=== PATIENT | male | born 1955 | race Caucasian/White ===

== ENCOUNTER → 2016-12-10 | Outpatient (CLI) | payer MEDICARE | LOC: LAB 08:46 | DX: Z01.812 Encounter for preprocedural laboratory examination (principal); R20.0 Anesthesia of skin | CPT/HCPCS: Q9967 ==

== ENCOUNTER → 2017-04-18 | Outpatient (CLI) | payer MEDICARE | LOC: RAD 04-17 13:00 | DX: R68.89 Other general symptoms and signs (principal) ==

== ENCOUNTER 2017-11-09 16:19 | Emergency (ER) | payer MEDICARE ==
[~2017-11-09] VITALS: Ht 188 cm; Wt 81.8 kg
[2017-11-09] MEDS ORDERED: AMITRIPTYLINE H25 M2 PO (16:23)
[2017-11-09] MEDS ORDERED: NEURONTIN300 MG/CAP (16:23)
[2017-11-09] MEDS ORDERED: ACETAMINOPHEN-O1 TAB PO (16:23)
[2017-11-09 17:17] LABS: HEMATOCRIT 41.2 % (42.0-52.0); HEMOGLOBIN 13.4 g/dL (13.5-18.0); MEAN CELL VOLUME 97 fl (78-100); MEAN CORPUSCULAR HEMOGLOBIN 31 pg (27-31); MEAN CORPUSCULAR HGB CONC 33 g/dL (33-37); MEAN PLATELET VOLUME 9.6 fl (7.4-10.4); PLATELET COUNT 243 K/mm3 (130-400); RED BLOOD COUNT 4.27 M/mm3 (4.20-5.60); RED CELL DISTRIBUTION WIDTH 12.8 % (11.5-14.5); WHITE BLOOD COUNT 10.3 K/mm3 (4.8-10.8)
[2017-11-09 17:26] LABS: ALBUMIN 3.6 g/dL (3.5-5.0); BUN/CREATININE RATIO 17.2 (6.0-26.0); CALCIUM 8.4 mg/dL (8.4-10.2); POTASSIUM 3.4 mmol/L (3.6-5.0); TOTAL BILIRUBIN 0.6 mg/dL (0.2-1.3); TOTAL PROTEIN 5.9 g/dL (6.3-8.2)
[2017-11-09 17:30] LABS: MONOCYTE 7 % (3-10); NEUTROPHILS 85 % (42-75)
[2017-11-09 17:31] LABS: LYMPHOCYTE 8 % (20-51)
[2017-11-09 18:29] LABS: URINE APPEARANCE CLEAR; URINE BILIRUBIN NEGATIVE (NEGATIVE); URINE BLOOD NEGATIVE (NEGATIVE); URINE COLOR YELLOW; URINE GLUCOSE NEGATIVE (NEGATIVE); URINE KETONE NEGATIVE (NEGATIVE); URINE LEUKOCYTE ESTERASE NEGATIVE (NEGATIVE); URINE NITRATE NEGATIVE (NEGATIVE); URINE PROTEIN(semi-quant) NEGATIVE (NEGATIVE); URINE UROBILINOGEN NORMAL (NORMAL)
[2017-11-09 18:34] LABS: URINE WBC 0-1 /hpf (0-3)
[2017-11-09 18:35] LABS: URINE MUCUS PRESENT (NOT PRESENT)
[2017-11-09] MEDS ORDERED: ZOFRAN ODT4 MG PO (19:14)
[2017-11-09] MEDS ORDERED: MECLIZINE PO (19:14)
[2017-11-09 19:21] VITALS: BP 127/74
== END 2017-11-09 19:21 | disposition home or self-care (01) ==
LOC: ED 16:19
PROVIDERS: Family Medicine
DX: R42 Dizziness and giddiness (principal); R11.2 Nausea with vomiting, unspecified; E87.6 Hypokalemia
CPT/HCPCS: J2405; J7030

== ENCOUNTER → 2020-08-23 | Outpatient (CLI) | payer MEDICARE ==
[~2020-08-23] MED LIST: ACETAMINOPHEN-O1 TAB PO; AMITRIPTYLINE H25 M2 PO; MECLIZINE PO; NEURONTIN300 MG/CAP; ZOFRAN ODT4 MG PO
== END ==
LOC: LAB 10:36
DX: Z20.828 Contact with and (suspected) exposure to other viral communicable diseases (principal)

== ENCOUNTER → 2020-08-28 | Day surgery (SDC) | payer MEDICARE, BC | LOC: MSO 06:53 | DX: K21.9 Gastro-esophageal reflux disease without esophagitis (principal); K29.30 Chronic superficial gastritis without bleeding; K44.9 Diaphragmatic hernia without obstruction or gangrene; K22.2 Esophageal obstruction; J44.9 Chronic obstructive pulmonary disease, unspecified; F32.9 Major depressive disorder, single episode, unspecified; Z79.82 Long term (current) use of aspirin; Z79.899 Other long term (current) drug therapy; Z79.51 Long term (current) use of inhaled steroids; Z88.1 Allergy status to other antibiotic agents | CPT/HCPCS: 00731; C1769; J2704; J7120 ==

== ENCOUNTER → 2021-09-24 | Day surgery (SDC) | payer MEDICARE, BC | END | disposition home or self-care (01) | LOC: MSO 07:59 | DX: K22.2 Esophageal obstruction (principal); K44.9 Diaphragmatic hernia without obstruction or gangrene; K21.9 Gastro-esophageal reflux disease without esophagitis; K58.9 Irritable bowel syndrome, unspecified; K57.90 Diverticulosis of intestine, part unspecified, without perforation or abscess without bleeding; I25.10 Atherosclerotic heart disease of native coronary artery without angina pectoris; J44.9 Chronic obstructive pulmonary disease, unspecified; Z79.82 Long term (current) use of aspirin; Z79.899 Other long term (current) drug therapy | CPT/HCPCS: 00731; C1769; J2704; J7120 ==

== ENCOUNTER → 2022-04-04 | Outpatient (CLI) | payer MEDICARE, BC | LOC: RAD 08:55 | DX: J44.9 Chronic obstructive pulmonary disease, unspecified (principal); J98.11 Atelectasis; I25.10 Atherosclerotic heart disease of native coronary artery without angina pectoris; J98.4 Other disorders of lung ==

== ENCOUNTER → 2022-12-05 | Outpatient (CLI) | payer MEDICARE, BC | LOC: RAD 07:54 | DX: Z13.6 Encounter for screening for cardiovascular disorders (principal); Z87.891 Personal history of nicotine dependence ==

== ENCOUNTER → 2022-12-26 | Outpatient (CLI) | payer MEDICARE, BC | LOC: RAD 08:41 | DX: R10.12 Left upper quadrant pain (principal); R60.9 Edema, unspecified | CPT/HCPCS: Q9967 ==

== ENCOUNTER → 2024-09-06 | Outpatient (CLI) | payer MEDICARE, BC ==
[2024-09-06 11:22] LABS: BASO # 0.03 K/mm3 (0.02-0.10); EOS # 0.05 K/mm3 (0.04-0.40); EOS % 0.9 % (0.0-4.0); HEMATOCRIT 45.5 % (42.0-52.0); HEMOGLOBIN 14.8 g/dL (13.5-18.0); LYMPH# 1.59 K/mm3 (1.50-4.00); MEAN CELL VOLUME 99 fl (78-100); MEAN CORPUSCULAR HEMOGLOBIN 32 pg (27-31); MEAN CORPUSCULAR HGB CONC 33 g/dL (33-37); MEAN PLATELET VOLUME 8.8 fl (7.4-10.4); MONO # 0.43 K/mm3 (0.20-0.80); NEU # 3.42 K/mm3 (1.40-6.50); PLATELET COUNT 220 K/mm3 (130-400); WHITE BLOOD COUNT 5.5 K/mm3 (4.8-10.8)
[2024-09-06 11:30] LABS: CALCIUM 9.1 mg/dL (8.3-10.5)
[2024-09-06 12:48] LABS: URINE WBC 0 /hpf (0-3)
[2024-09-06 13:05] LABS: URINE APPEARANCE TURBID (CLEAR); URINE BILIRUBIN NEGATIVE (NEGATIVE); URINE BLOOD NEGATIVE (NEGATIVE); URINE COLOR YELLOW (YELLOW); URINE GLUCOSE NEGATIVE (NEGATIVE); URINE KETONE NEGATIVE (NEGATIVE); URINE LEUKOCYTE ESTERASE NEGATIVE (NEGATIVE); URINE NITRATE NEGATIVE (NEGATIVE); URINE PROTEIN(semi-quant) NEGATIVE (NEGATIVE)
== END ==
LOC: LAB 11:09
PROVIDERS: Physician Assistant Medical
DX: R10.31 Right lower quadrant pain (principal)

== ENCOUNTER → 2024-11-18 | Outpatient (CLI) | payer MEDICARE, BC ==
[~2024-11-18] MED LIST changes: +Iohexol 300 - 100 ML VIAL IV ONE; +NS 100 ML IV SCH
== END ==
LOC: RAD 12:38
DX: K63.9 Disease of intestine, unspecified (principal)
CPT/HCPCS: Q9967

== ENCOUNTER → 2024-12-03 | Outpatient (CLI) | payer MEDICARE, BC ==
[~2024-12-03] MED LIST changes: -Iohexol 300 - 100 ML VIAL IV ONE; -NS 100 ML IV SCH
== END ==
LOC: LAB 10:01
DX: Z01.812 Encounter for preprocedural laboratory examination (principal)

== ENCOUNTER → 2024-12-07 | Outpatient (CLI) | payer MEDICARE, BC ==
[~2024-12-07] MED LIST changes: +Iohexol 300 - 100 ML VIAL IV ONE; +NS 100 ML IV ONE
== END ==
LOC: RAD 11:14
DX: K58.1 Irritable bowel syndrome with constipation (principal)
CPT/HCPCS: Q9967